=== PATIENT | female | born 1990 | race African-American/Black ===

== ENCOUNTER 2018-07-05 00:06 | Emergency (ER) | payer MEDICAID ==
[~2018-07-05] VITALS: Ht 165.1 cm; Wt 86.6 kg
[2018-07-05 00:15] VITALS: BP_SYST 146
[2018-07-05 02:05] VITALS: BP_SYST 136
== END 2018-07-05 02:05 | disposition home or self-care (01) ==
LOC: SED 00:06
DX: R05 Cough (principal)
CPT/HCPCS: 71045; 93005; 99283